=== PATIENT | male | born 1980 | race Two or more races ===

== ENCOUNTER 2019-02-03 02:50 | Emergency (ER) | payer OTHER ==
[2019-02-03 03:00] VITALS: BP 123/85; PULSE 69; TEMP 98.1; BMI 31.8
--- NOTE | 2019-02-03 03:10 | PDOC ---
History of Present Illness - General Chief Complaint: Cold Symptoms Stated Complaint: SINUS PRESSURE/SORE THROAT Time Seen by Provider: 02/03/19 02:52 - History of Present Illness Initial Comments: 02/03/19 03:12 Chief complaint earache runny nose cough sore throat sinus congestion History of present illness: 38 years old no significant past medical history presents to the emergency department with 5 day history of runny nose sore throat ear congestion sinus congestion. Symptoms started left side of them up toward side associated with sinus pressure and pain nasal congestion some yellowish nasal discharge no severe headache no neck stiffness no rash no nausea no vomiting symptoms are moderate persistent concent no exacerbating or alleviating factors Past History - Past Medical History Allergies/Adverse Reactions: Allergies Allergy/AdvReac Type Severity Reaction Status Date / Time No Known Allergies Allergy Verified 08/17/16 02:11 Home Medications: Ambulatory Orders NK [No Known Home Medication] 08/17/16 COPD: No - Immunization History Td Vaccination: Yes Immunization Up to Date: Yes - Suicide/Smoking/Psychosocial Hx Smoking Status: Yes Smoking History: Current some day smoker Have you smoked in the past 12 months: No Number of Cigarettes Smoked Daily: 0 Information on smoking cessation initiated: Yes Hx Alcohol Use: Yes Drug/Substance Use Hx: No Substance Use Type: Alcohol Review of Systems - Review of Systems Comments:: 02/03/19 03:12 ROS: A complete review of 10 out of 10 review of systems is taken and is negative apart from what is previously mentioned below and in the HPI. *Physical Exam - Vital Signs Last Vital Signs Temp Pulse Resp BP Pulse Ox 98.1 F 69 16 123/85 97 02/03/19 02:56 02/03/19 02:56 02/03/19 02:56 02/03/19 02:56 02/03/19 02:56 - Physical Exam Comments: 02/03/19 03:12 Vitals: Triage Vital signs reviewed General Appearance: no acute distress, well nourished well developed, Head: Atraumatic, Eyes: Pupils equal reactive round, extraocular movement intact Ears: TM's normal bilaterally; Nose: Nares patent bilaterally;+ nasal congestion Throat: Posterior oropharynx with erythema, mucous membranes moist, Neck: Supple;No Nucal rigidity Chest Wall: Nontender Cardiac: Regular rate and rhythym, no murmurs, no rubs, no gallops, Lungs: Clear to auscultation bilateral, good air movement bilaterally, Extremities: Full range of motion to all extremities, no cyanosis, clubbing, or edema Skin: Warm and dry, no rashes or lesions, no rash, no petechiae Psych: normal mood, normal affect Medical Decision Making - Medical Decision Making 02/03/19 03:13 Well-appearing no apparent distress history examination consistent with viral URI and sinus congestion We'll recommend Afrin nasal spray nasal rinses Motrin rapid strep sent given throat erythema although low suspicion at this time we'll call patient with results Findings, need for follow-up and strict return instructions discussed with patient. *DC/Admit/Observation/Transfer Diagnosis at time of Disposition: URI (upper respiratory infection) Qualifiers: URI type: unspecified viral URI Qualified Code(s): J06.9 - Acute upper respiratory infection, unspecified - Discharge Dispostion Disposition: HOME Condition at time of disposition: Stable Decision to Admit order: No - Referrals Referrals: [facility] [place] [Provider Group] - Patient Instructions Printed Discharge Instructions: DI for Viral Upper Respiratory Infection -- Adult Additional Instructions: Use Afrin nasal spray 2 puffs to each nostril weight 20 minutes then use saline rinses each nostril in one side than on the other. [id number] Motrin as directed on package. Return to ED for any new fever severe headache neck stiffness green discharge from nose severe worsening symptoms or for any concerns. Follow up with your primary care provider or the clinic listed in the referral section next week. - Post Discharge Activity
== END 2019-02-03 03:14 | disposition home or self-care (01) ==
LOC: FER 02:50
DX: J06.9 Acute upper respiratory infection, unspecified (principal); F17.210 Nicotine dependence, cigarettes, uncomplicated
CPT/HCPCS: 87070; 87077; 87880; 99282-25

== ENCOUNTER 2019-03-24 03:26 | Emergency (ER) | payer OTHER ==
[2019-03-24 03:29] VITALS: BMI 33.9
[2019-03-24 03:36] VITALS: BP 121/79; PULSE 90; TEMP 99.2
--- NOTE | 2019-03-24 03:41 | PDOC ---
History of Present Illness - General Chief Complaint: Nausea/Vomiting Stated Complaint: VOMITING Time Seen by Provider: 03/24/19 03:33 History Source: Patient Exam Limitations: No Limitations - History of Present Illness Initial Comments: 03/24/19 03:37 This is a 38-year-old male who comes in complaining of abdominal pain nausea vomiting and headache. Patient took a Robaxin tablet that had been and after taking it he developed these symptoms. Patient is noted to be very anxious and hyperventilating here in the emergency department. Patient is otherwise healthy and denies any sick contacts or anyone else who has had similar symptoms. Allergies: as per nursing notes Past Medical History: none Social history: Lives with family. No smoking. No alcohol. No illicit drugs. Surgical history: None General: No fevers or chills, no weakness, no weight loss HEENT: No change in vision. No sore throat,. No ear pain CardioVascular: no chest discomfort. No shortness of breath Respiratory:No cough, or wheezing. Gastrointestinal: no nausea, vomiting, diarrhea or constipation, No rectal bleeding Genitourinary: No dysuria, hematuria, or frequency Musculoskeletal: No joint or muscle pain or swelling Neurologic: No headache, vertigo, dizziness or loss of consciousness Psychiatric: nor depression Skin: No rashes or easy bruising Endocrine: no increased thirst or abnormal weight change Allergic: no skin or latex allergy All other systems reviewed and normal Exam: General: Well-nourished well-developed individual, no acute distress HEENT: Throat: Normal, tonsils normal, no erythema or exudate Neck: Supple, no meningeal signs, no lymphadenopathy Eyes::Pupils equal reactive and round, extraocular motion intact Chest: Nontender to palpation Cardiac: S1-S2 normal, regular rate and rhythm, no murmurs rubs or gallops Respiratory: Lungs clear to auscultation bilateral Abdomen: Soft, nondistended, normal bowel sounds, there is no tenderness on palpation diffusely Extremities: Warm, dry, no cyanosis, clubbing, or edema Skin: No rashes Neuro: Alert and oriented x3, CN II - XII intact, nonfocal exam with normal strength, normal sensation, normal reflexes, normal gait, Psych: Normal mood and affect 03/24/19 03:43 Assessment and plan: This is a 38-year-old male who comes in complaining of nausea vomiting and abdominal pain. Abdominal pain is lower abdominal pain and cramping. On my exam however there was no tenderness on palpation. Patient given IV fluids, Zofran, Toradol and basic labs including CBC and comp were done. Past History - Past Medical History Allergies/Adverse Reactions: Allergies Allergy/AdvReac Type Severity Reaction Status Date / Time No Known Allergies Allergy Verified 03/24/19 03:27 Home Medications: Ambulatory Orders Ondansetron [Ondansetron Odt] 8 mg PO TID #12 tab.rapdis 03/24/19 COPD: No - Immunization History Td Vaccination: Yes Immunization Up to Date: Yes - Suicide/Smoking/Psychosocial Hx Smoking Status: Yes Smoking History: Never smoked Have you smoked in the past 12 months: No Number of Cigarettes Smoked Daily: 0 Hx Alcohol Use: Yes Drug/Substance Use Hx: No Substance Use Type: Alcohol *Physical Exam - Vital Signs Last Vital Signs Temp Pulse Resp BP Pulse Ox 99.2 F 90 20 121/79 100 03/24/19 03:27 03/24/19 03:27 03/24/19 03:27 03/24/19 03:27 03/24/19 03:27 ED Treatment Course - LABORATORY CBC & Chemistry Diagram: 03/24/19 04:06 03/24/19 04:06 *DC/Admit/Observation/Transfer Diagnosis at time of Disposition: Nausea and vomiting Qualifiers: Vomiting type: unspecified Vomiting Intractability: non-intractable Qualified Code(s): R11.2 - Nausea with vomiting, unspecified - Discharge Dispostion Disposition: HOME Condition at time of disposition: Stable Decision to Admit order: No - Prescriptions Prescriptions: Ondansetron [Ondansetron Odt] 8 mg PO TID #12 tab.rapdis - Referrals - Patient Instructions Additional Instructions: Clear liquids only for the next 6 hours.. For nausea or vomiting take Zofran 1 tablet as often as 3 times a day. After that if you have had no further vomiting you may have bananas, rice, applesauce, or toast. If no further vomiting for another 8 hours you may have regular food. If you vomit again then nothing to eat or drink for 2 hours. then start back with the clear liquids. Return to the emergency department immediately with ANY new, persistent or worsening symptoms. You MUST call and follow up with your doctor tomorrow if not better. Please make sure your doctor reviews the results of your emergency evaluation. - Post Discharge Activity
[2019-03-24] MEDS ORDERED: SODIUM CHLORIDE 1,000 ML IV ONE (03:45)
[2019-03-24] MEDS ORDERED: KETOROLAC TROMETHAMINE 30 MG/1 ML VIAL IVPUSH ONE (03:45)
[2019-03-24] MEDS ORDERED: ONDANSETRON 4 MG/2 ML VIAL IVPB ONE (03:45)
[2019-03-24] MEDS ORDERED: ONDANSETRON 4 MG/2 ML VIAL ONE ×2 (04:05→04:07)
[2019-03-24] MEDS ORDERED: KETOROLAC TROMETHAMINE 30 MG/1 ML VIAL ONE (04:06)
[2019-03-24 04:48] LABS: BASO % 0.2 % (0-2.0); EOS % 0.4 % (0-4.5); HEMATOCRIT 43.5 % (35.4-49); HEMOGLOBIN 14.9 GM/dL (11.7-16.9); LYMPH % 10.1 % (8-40); MCH 30.2 pg (25.7-33.7); MCHC 34.1 g/dl (32.0-35.9); MEAN CELL VOLUME 88.3 fl (80-96); MONO % 7.5 % (3.8-10.2); NEUT % 81.8 % (42.8-82.8); PLATELET COUNT 171 K/MM3 (134-434); RBC 4.92 M/mm3 (4.00-5.60); RDW 13.1 % (11.9-15.9); WHITE BLOOD COUNT 8.7 K/mm3 (4.0-10.0)
[2019-03-24 05:49] LABS: ALBUMIN 4.4 g/dl (3.4-5.0); BILIRUBIN,TOTAL 0.5 mg/dL (0.2-1); CREATININE 1.2 mg/dL (0.55-1.3); POTASSIUM 3.7 mmol/L (3.5-5.1); TOT PROT 7.5 g/dl (6.4-8.2)
== END 2019-03-24 06:05 | disposition home or self-care (01) ==
LOC: FER 03:26
PROC: 3E0333Z Introduction of Anti-inflammatory into Peripheral Vein, Percutaneous Approach (ICD-10-PCS; principal; 2019-03-24)
PROC: 3E033GC Introduction of Other Therapeutic Substance into Peripheral Vein, Percutaneous Approach (ICD-10-PCS; 2019-03-24)
PROC: 3E0337Z Introduction of Electrolytic and Water Balance Substance into Peripheral Vein, Percutaneous Approach (ICD-10-PCS; 2019-03-24)
DX: R11.2 Nausea with vomiting, unspecified (principal)
CPT/HCPCS: 36415; 80053; 83690; 85025; 99283-25; J7030

== ENCOUNTER 2020-09-27 10:52 | Emergency (ER) | payer OTHER | END 2020-09-27 12:01 | disposition home or self-care (01) | LOC: JVIRT 10:52 | DX: Z01.84 Encounter for antibody response examination (principal) | CPT/HCPCS: 36415; 86769; Q3014-GT ==

== ENCOUNTER 2020-12-11 11:16 | Emergency (ER) | payer OTHER | END 2020-12-11 12:11 | disposition home or self-care (01) | LOC: JVIRT 11:16 | DX: Z11.52 Encounter for screening for COVID-19 (principal) | CPT/HCPCS: G2012-GT ==

== ENCOUNTER 2020-12-29 10:45 | Emergency (ER) | payer OTHER | END 2020-12-29 11:38 | disposition home or self-care (01) | LOC: JVIRT 10:45 | DX: R05 Cough (principal); Z11.52 Encounter for screening for COVID-19 | CPT/HCPCS: C9803; G2251-GT; U0003 ==

== ENCOUNTER 2025-05-09 00:58 | Emergency (ER) | payer OTHER, BC ==
[2025-05-09 01:09] VITALS: TEMP 97.7; BMI 31.1
[2025-05-09 01:43] LABS: ABSOLUTE IMMATURE GRANULOCYTES 0.02 x10^3/uL (0.0-0.031); BASOPHILS # 0.03 x10^3/uL (0.01-0.08); EOSINOPHIL % 0.9 % (0.8-7.0); EOSINOPHILS # 0.08 x10^3/uL (0.04-0.54); MCHC 33.5 g/dl (32.3-36.5); MEAN CELL VOLUME 89.9 fl (79.0-92.2); MEAN PLT VOLUME 11.0 fl (9.4-12.4); MONOCYTE # 0.78 x10^3/uL (0.30-0.82); MONOCYTE % 9.1 % (5.3-12.2); RDW 11.5 % (12.1-15.9)
[2025-05-09] MEDS ORDERED: HYDROmorphone HCL CARPU-JECT 2 MG/1 ML DISP.SYRIN ONE ×2 (01:47→05:23)
[2025-05-09 01:53] LABS: INR 1.13 (0.83-1.09); PROTHROMBIN TIME (PATIENT) 12.4 SEC (9.7-13.0)
[2025-05-09 01:56] LABS: ACTIVATED PTT 26.6 SECONDS (25.2-36.5)
[2025-05-09 02:39] LABS: CO2 33.0 mmol/L (21-32); GLUCOSE,RANDOM 98.0 mg/dL (74-106)
[2025-05-09 02:42] LABS: CREATININE 0.8 mg/dL (0.55-1.3); SGOT/AST 15.0 U/L (15-37); SGPT/ALT 20.0 U/L (13-61)
[2025-05-09 02:45] LABS: TOT PROT 7.0 g/dl (6.4-8.2)
[2025-05-09 02:46] LABS: ALK PHOS 62.0 U/L (45-117)
[2025-05-09 03:02] LABS: HIV INTERPRETATION NEGATIVE (NEGATIVE)
[2025-05-09 03:03] LABS: HCV DIAGNOSTIC IN-HOUSE W/RFLX NON-REACTIVE (NONREACTIVE)
[2025-05-09 06:05] VITALS: BP 134/87; PULSE 82; RESP 14
== END 2025-05-09 06:05 | disposition home or self-care (01) ==
LOC: JER 00:58
PROC: 3E033NZ Introduction of Analgesics, Hypnotics, Sedatives into Peripheral Vein, Percutaneous Approach (ICD-10-PCS; principal; 2025-05-09)
PROC: 3E033NZ Introduction of Analgesics, Hypnotics, Sedatives into Peripheral Vein, Percutaneous Approach (ICD-10-PCS; 2025-05-09)
DX: M96.842 Postprocedural seroma of a musculoskeletal structure following a musculoskeletal system procedure (principal); R06.02 Shortness of breath
CPT/HCPCS: 36415; 70491-TC; 80053; 85025; 85610; 85730; 86803; 86850; 86900; 86901; 87389; 99285-25; Q9967